=== PATIENT | male | born 1985 | race Hispanic/Latino ===

== ENCOUNTER 2017-11-10 21:03 | Inpatient (IN) | payer MEDICAID, OTHER ==
[2017-11-10 22:43] LABS: RBC URINE 10 /hpf (0-3); URINE BACTERIA RARE (<OCC); URINE BILIRUBIN NEGATIVE (NEGATIVE); URINE BLOOD 1+ (NEGATIVE); URINE CALCIUM OXALATE CRYSTALS FEW /hpf (<OCC); URINE COLOR Yellow (YELLOW); URINE GLUCOSE (UA) NORMAL (Normal); URINE KETONE NEGATIVE (NEGATIVE); URINE LEUKOCYTE ESTERASE NEG Leu/uL (Negative); URINE PROTEIN NEGATIVE (NEGATIVE); URINE UROBILINOGEN NORMAL mg/dL (0.2-1.0); WBC URINE 1 /hpf (0-5)
[2017-11-10 22:47] LABS: BASO # 0.1 K/uL (0.0-0.2); BASO % 0.6 % (0.0-2.0); EOS # 0.1 K/uL (0.0-0.7); EOS % 1.2 % (0.0-4.0); HEMATOCRIT 37.7 % (35.0-51.0); LYMPH # 2.5 K/uL (1.0-4.3); LYMPH % 27.8 % (20.0-40.0); MEAN CORPUSCULAR HEMOGLOBIN 30.2 pg (27.0-31.0); MEAN CORPUSCULAR HGB CONC 34.9 g/dL (33.0-37.0); MEAN PLATELET VOLUME 7.3 fL (7.2-11.7); MONO % 10.8 % (0.0-10.0); RED CELL DISTRIBUTION WIDTH 13.9 % (11.5-14.5); WHITE BLOOD COUNT 8.9 K/uL (4.8-10.8)
[2017-11-10 22:48] LABS: MEAN CELL VOLUME 86.6 fL (80.0-94.0)
[2017-11-10 22:55] LABS: ALB/GLOB RATIO 1.4 (1.0-2.1); ALCOHOL SERUM < 10 mg/dl (0-10); ALKALINE PHOSPHATASE 86 U/L (38-126); ALT/SGPT 35 U/L (21-72); AST/SGOT 31 U/L (17-59); BILIRUBIN,TOTAL 0.6 mg/dL (0.2-1.3); BLOOD UREA NITROGEN 13 mg/dL (9-20); CALCIUM 8.6 mg/dl (8.6-10.4); CARBON DIOXIDE 30 mmol/L (22-30); CHLORIDE 98 mmol/L (98-107); GFR AFRICAN-AMERICAN > 60; GLUCOSE,RANDOM 84 mg/dL (75-110); POTASSIUM 3.9 mmol/L (3.6-5.2); SODIUM 135 mmol/L (132-148); TOTAL PROTEIN 7.2 g/dL (6.3-8.3)
--- NOTE | 2017-11-10 23:44 | C.PDOC ---
Time Seen by Provider: 11/10/17 21:50 Chief Complaint (Nursing): Substance Abuse History Per: Patient Onset/Duration Of Symptoms: Days Current Symptoms Are (Timing): Still Present Suicide/Self Injury Attempted (Context): None Modifying Factor(s): Narcotics, Crack Severity: Moderate Associated Symptoms: denies: Suicidal Thoughts, Suicidal Plan Additional History Per: Prior Records Past Medical History Reviewed: Historical Data, Nursing Documentation, Vital Signs Vital Signs: Last Vital Signs Temp 97.9 F 11/10/17 21:43 Pulse 87 11/10/17 21:43 Resp 18 11/10/17 21:43 BP 133/70 11/10/17 21:43 Pulse Ox 95 11/10/17 23:44 - Medical History PMH: No Chronic Diseases - [facility] Procedures COMBINED ALCOHOL AND DRUG DETOXIFICATION (12/02/14) DETOXIFICATION SERVICES FOR SUBSTANCE ABUSE TREATMENT (05/20/16) DRUG DETOXIFICATION (06/13/15) INDIV UTILITY MANAGER FOR SUBSTANCE ABUSE TREATMENT, INTERPERSONAL (09/25/15) PHARMACOTHERAPY FOR SUBSTANCE ABUSE, OTH REPLACE MED (09/25/15) Family History: States: Unknown Family Hx - Social History Hx Tobacco Use: Yes Hx Alcohol Use: No Hx Substance Use: Yes (IVDU Heroin) - Immunization History Hx Tetanus Toxoid Vaccination: No Hx Influenza Vaccination: No Hx Pneumococcal Vaccination: No Review Of Systems Except As Marked, All Systems Reviewed And Found Negative. Constitutional: Negative for: Fever, Weakness Cardiovascular: Negative for: Chest Pain Respiratory: Negative for: Shortness of Breath Gastrointestinal: Negative for: Vomiting, Abdominal Pain Musculoskeletal: Negative for: Neck Pain Skin: Negative for: Rash Neurological: Negative for: Seizures Physical Exam - Physical Exam Appears: Non-toxic, No Acute Distress Skin: Normal Color, Warm, Dry Head: Atraumatic, Normacephalic Eye(s): bilateral: PERRL, EOMI Neck: Normal ROM, Supple Cardiovascular: Rhythm Regular Respiratory: Normal Breath Sounds, No Accessory Muscle Use Gastrointestinal/Abdominal: Soft, No Tenderness Extremity: Normal ROM, Other (Track doty on arms) Neurological/Psych: Oriented x3, Normal Motor, Normal Sensation ED Course And Treatment - Laboratory Results Result Diagrams: 11/10/17 22:34 11/10/17 22:34 Lab Interpretation: No Acute Changes O2 Sat by Pulse Oximetry: 95 Pulse Ox Interpretation: Normal Progress Note: Pt is medically stable for detox admission. Disposition Counseled Patient/Family Regarding: Studies Performed, Diagnosis, Smoking Cessation - Disposition Disposition: HOSPITALIZED Disposition Time: 23:48 Condition: STABLE - Clinical Impression Clinical Impression: Opioid use disorder, severe, dependence, Cocaine abuse Decision To Admit - Pt Status Changed To: Hospital Disposition Of: Inpatient - Admit Certification Admit to Inpatient:: After my assessment, the patient will require hospitalization for at least two midnights. This is because of the severity of symptoms shown, intensity of services needed, and/or the medical risk in this patient being treated as an outpatient. - InPatient: Physician Admission Certification: I certify that this patient requires 2 or more midnights of care for the following reason:: Detox. - . Bed Request Type: Detox Admitting Physician: Rolo Pastrana Patient Diagnosis: Opioid use disorder, severe, dependence, Cocaine abuse
--- NOTE | 2017-11-11 05:39 | PCM.BM ---
<Shree Conner - Last Filed: 11/11/17 05:38> Treatment Plan Problems - Problems identified on initial assessmt Opiates Abuse Date Initiated: 11/11/17 Time Initiated: 01:30 Assessment reference: NA Status: Active Treatment assets and liabiliti Patient Assests: self-reliant, ADL independent, physically healthy, good support system, negotiates basic needs Patient Liabilities: substance abuse (Opiates, Crack cocaine. ) - Milieu Protocol Maintain good personal hygiene: daily Encourage regular showers, daily Remind patient to perform daily oral care, every shift Assist patient to perform ADL's Maintain personal safety: every shift Educate patient to report safety concerns to staff, every shift Monitor environment for contraband/sharps Medication safety: Monitor for expected outcome, potential side effects: every shift, Assess barriers to learning: every shift, Assess readiness for medication education: daily, every shift <Landy Poole - Last Filed: 11/12/17 08:18> Family Contact Family involvement: Family/SO is involved Family contact: Patient agrees to contact - Goals for Treatment Patient goals for treatment: Complete detox and apply for [facility] rehab at [facility]. Discharge/Continuing Care - Education Needs Education Needs: Patient Medication, Patient Diagnosis/Disease Process, Patient Coping Skills, Patient Anger Management skills, Patient Placement options, Patient Community resources, Patient Other (co-dependency) - Discharge Discharge Criteria: No longer exhibiting s/s of withdrawal, Reduction of target symptoms Discharge to:: Substance Abuse Rehab - Treatment Team Participation Patient/Family/SO Statement: 11/12/17 08:19 "I need [facility] rehab". Discussed with Family/SO: No Was Patient/Family/SO present at Treatment Team Meeting: Yes <Rolo Pastrana - Last Filed: 11/12/17 22:48> - Diagnosis (1) Opioid use disorder, severe, dependence Status: Acute Interventions: 11/12/17 22:48 * Assess 7x/week regarding severity of withdrawal * Educate regarding risks, benefits, side effects and alternatives of medications * Use Motivational Interviewing for abstinence * Use CBT for relapse prevention * Medication management for withdrawal symptoms * Encourage medication assisted treatment *
[2017-11-11] MEDS ORDERED: Buprenorphine Hydrochloride 2 mg SL ONE ×2 (13:32→14:45)
--- NOTE | 2017-11-11 13:54 | PCM.PSYCH ---
Initial Psychiatric Evaluation - Initial Psychiatric Evaluation Type of Admission: Voluntary Legal Status: Capacity Chief Complaint (in patient's own words): "Relapsed" History of Present Illness and Precipitating Events: The patient is seen, chart reviewed and case discussed. He is well-known to the global technical writer from his previous admissions. This is a 32-year-old male, single with no child, unemployed, living with his parents and siblings in [facility]. The patient admits to using 20-25 bags of heroin intravenously every day for several years but he started with painkillers in the past. He describes mild withdrawal symptoms now. He says he stayed clean a little and then relapsed. He also admits to using cocaine "once a week" intranasally. He denies all other drug use and alcohol use but admits to smoking 2 packs per day cigarettes. Past psych history: He denies Family psych history: Denies Medical history: Denies Current Medications: Active Medications Generic Name Dose Route Start Last Admin Trade Name Freq PRN Reason Stop Dose Admin Buprenorphine HCl 6 mg 11/11/17 14:45 Subutex SL 11/11/17 14:46 ONCE ONE Clonidine HCl 0.1 mg 11/11/17 06:59 Catapres PO Q8 PRN COWS Score More or Equal to 5 Hydroxyzine HCl 50 mg 11/11/17 06:59 Atarax PO Q6H PRN Anxiety Ibuprofen 600 mg 11/11/17 06:59 Motrin Tab PO Q6H PRN Pain, moderate (4-7) Loperamide HCl 2 mg 11/11/17 06:59 Imodium PO Q8 PRN Diarrhea Nicotine 1 patch 11/11/17 10:30 11/11/17 11:13 Nicoderm Cq TD 1 patch DAILY JOHN PAUL Administration Ondansetron HCl 4 mg 11/11/17 06:59 Zofran Tab PO Q8 PRN Nausea/Vomiting Quetiapine Fumarate 100 mg 11/11/17 22:00 Seroquel PO HS JOHN PAUL Past Psychiatric History - Past Psychiatric History Previous Treatment History: None Pertinent Medical Hx (Current Medical&Sleep Prob, Allergies): Allergies Allergy/AdvReac Type Severity Reaction Status Date / Time FISH Allergy Intermediate Unknown Verified 05/20/16 15:05 PORK Allergy Intermediate Unknown Verified 05/20/16 15:05 shellfish derived Allergy RASH Verified 11/10/17 21:46 No Known Home Med 11/10/17 Review of Systems - Neurological Neurological: UNREMARKABLE - Psychiatric Psychiatric: Abnormal Sleep Pattern, Anxiety. absent: Depression, Hallucinations, Homicidal Ideation, Suicidal Ideation Mental Status Examination - Personal Presentation Personal Presentation: Looks stated age - Affect Affect: Constricted - Motor Activity Motor Activity: Calm - Reliability in Providing Information Reliability in Providing Information: Good - Speech Speech: Organized - Mood Mood: Anxious - Formal Thought Process Formal Thought Process: No Impairment - Cognitive Functions Orientation: Person, Place, Situation, Time Sensorium: Alert Attention/Concentration: Attentive Estimate of Intelligence: Average Judgement: Intact, as evidence by: Insight regarding need for hospitalization Memory: Recent intact, as evidence by: Ability to recall events of the day, Remote intact, as evidenced by: Abilit to recall sig. life events - Risk Risk: Withdrawal, Diminished functioning - Strength & Assets Inventory Strength & Assets Inventory: Family support, Cooperative - Limitations Limitations: Other DSM 5 DX - DSM 5 DSM 5 Diagnosis: Primary: Opioid withdrawal Opioid use d/o - severe Cocaine use d/o - severe - Recommended/Plan of Treatment Treatment Recommendations and Plan of Treatment: Subutex detox Gabapentin for augmentation As needed medications Attend groups and activities Supportive therapy and psychoeducation SD for abstinence CBT for relapse prevention Encourage MAT Refer to rehab or IOP, and self-help groups Smoking cessation with SD Nicotine patch 34 min Projected ELOS: 5 days Prognosis: Good with treatment Discharge Plan and Discharge Criteria: No wdw sxs refer to rehab or MAT - Smoking Cessation Smoking Cessation Initiated: Yes
[2017-11-12] MEDS: Buprenorphine Hydrochloride 2 mg SL SCH (10:17)
--- NOTE | 2017-11-12 14:16 | PCM.PYCHPN ---
Psychiatric Progress Note - Psychiatric Progress Note Patient seen today, length of contact: 16 min Patient Chief Complaint: "So so" Problems Identified/Issues Discussed: The pt is seen, chart reviewed, case discussed with staff. The pt is compliant with medications and reports no side-effects. Symptoms are improving but needs more time to stabilize. After care discussed, support and psychoeducation given. He is more motivated for rehab now Medication Change: Yes (detox changes daily) Medical Record Reviewed: Yes Mental Status Examination - Cognitive Function Orientation: Person, Place, Situation, Time Memory: Intact Attention: WNL Concentration: WNL Association: WNL Fund of Knowledge: WNL - Mood Mood: Anxious - Affect Affect: Constricted - Formal Thought Process Formal Thought Process: No Impairment - Suicidal Ideation Suicidal Ideation: No - Homicidal Ideation Homicidal Ideation: No Goal/Treatment Plan - Goal/Treatment Plan Need for Continued Stay: Discharge may exacerbated symptoms, Severe functional impairment Progress Toward Problem(s) and Goals/Treatment Plan: Subutex detox Gabapentin for augmentation As needed medications Attend groups and activities Supportive therapy and psychoeducation AR for abstinence CBT for relapse prevention Encourage MAT Refer to rehab or IOP, and self-help groups Smoking cessation with AR Nicotine patch
[2017-11-12] MEDS: Multiple Vitamins Tab PO SCH (14:49)
[2017-11-13] MEDS: Multiple Vitamins Tab PO SCH (10:27)
[2017-11-13] MEDS: Buprenorphine Hydrochloride 2 mg SL SCH (10:27)
[2017-11-14] MEDS: Multiple Vitamins Tab PO SCH (10:15)
[2017-11-14] MEDS: Buprenorphine Hydrochloride 2 mg SL SCH (10:15)
--- NOTE | 2017-11-14 12:30 | PCM.PYCHPN ---
Psychiatric Progress Note - Psychiatric Progress Note Patient seen today, length of contact: 16 min Patient Chief Complaint: "I have muscle cramps and I'm anxious" Problems Identified/Issues Discussed: The pt is seen, chart reviewed, case discussed with staff. Pt stated that he is feeling anxious, as well as he has had muscle cramps, flashes, and difficulty in sleep. The pt is compliant with medications and reports no side-effects. Symptoms are improving but needs more time to stabilize. After care discussed, support and psychoeducation given. DSM 5 Symptoms Update: Opioid dependence, severe, withdrawal symptoms Medication Change: Yes (detox changes daily) Medical Record Reviewed: Yes Mental Status Examination - Cognitive Function Orientation: Person, Place, Situation, Time Memory: Intact Attention: WNL Concentration: WNL Association: WNL Fund of Knowledge: WNL Decription of patient's judgement and insights: good/good - Mood Mood: Anxious - Affect Affect: Constricted - Formal Thought Process Formal Thought Process: No Impairment Psychotic Thoughts and Behaviors: denied Additional comments: Calm and cooperative - Suicidal Ideation Suicidal Ideation: No - Homicidal Ideation Homicidal Ideation: No Goal/Treatment Plan - Goal/Treatment Plan Need for Continued Stay: Discharge may exacerbated symptoms, Severe functional impairment Progress Toward Problem(s) and Goals/Treatment Plan: Subutex detox increase Gabapentin 400 mg po tid for augmentation and anxiety As needed medications Attend groups and activities Supportive therapy and psychoeducation NC for abstinence CBT for relapse prevention Encourage MAT Refer to rehab or IOP, and self-help groups Smoking cessation with NC Nicotine patch Estimated Date of D/C: 11/17/17 - Smoking Cessation Smoking Cessation Initiated: Yes
[2017-11-15] MEDS: Buprenorphine Hydrochloride 2 mg SL SCH (09:19)
[2017-11-15] MEDS: Multiple Vitamins Tab PO SCH (09:20)
--- NOTE | 2017-11-15 12:28 | PCM.PYCHPN ---
Psychiatric Progress Note - Psychiatric Progress Note Patient seen today, length of contact: 16 min Patient Chief Complaint: "Better, I guess" Problems Identified/Issues Discussed: The pt is seen, chart reviewed, case discussed with staff. Support given, CBT and SC used briefly No new symptoms reported, improving slowly and needs more time No SEs from medications, risks discussed. After care discussed, to go to [facility] on Tue Will d/c tomorrow though to lower risk of release and will given an extra dose of sub. Medication Change: Yes (detox changes daily) Medical Record Reviewed: Yes Mental Status Examination - Cognitive Function Orientation: Person, Place, Situation, Time Memory: Intact Attention: WNL Concentration: WNL Association: WNL Fund of Knowledge: WNL - Mood Mood: Anxious - Affect Affect: Constricted - Formal Thought Process Formal Thought Process: No Impairment - Suicidal Ideation Suicidal Ideation: No - Homicidal Ideation Homicidal Ideation: No Goal/Treatment Plan - Goal/Treatment Plan Need for Continued Stay: Discharge may exacerbated symptoms, Severe functional impairment Progress Toward Problem(s) and Goals/Treatment Plan: Subutex detox Gabapentin for augmentation As needed medications Attend groups and activities Supportive therapy and psychoeducation SC for abstinence CBT for relapse prevention Encourage MAT Refer to rehab or IOP, and self-help groups Smoking cessation with SC Nicotine patch Estimated Date of D/C: 11/17/17
[2017-11-15 13:12] VITALS: RESP 18
[2017-11-16 06:37] VITALS: TEMP 97.8; O2SAT 99
[2017-11-16 08:09] VITALS: BP 124/86; PULSE 81
[2017-11-16] MEDS ORDERED: Buprenorphine Hydrochloride 2 mg SL ONE (09:00)
--- NOTE | 2017-11-16 09:12 | PCM.PYCHDC ---
Mental Status Examination - Mental Status Examination Orientation: Person, Place, Situation, Time Memory: Intact Mood: Neutral Affect: Broad Attention: WNL Concentration: WNL Association: WNL Fund of Knowledge: WNL Formal Thought Process: No Impairment Description of patient's judgement and insight: good/good Psychotic Thoughts and Behaviors: denied, Calm anc Cooperative, Motivated to start new life without drugs Suicidal Ideation: No Current Homicidal Ideation?: No Plan: denied Discharge Summary - Discharge Note Reason for Hospitalization: This is a 32-year-old male, single with no child, unemployed, living with his parents and siblings in [facility]. The patient admits to using 20-25 bags of heroin intravenously every day for several years but he started with painkillers in the past. He describes mild withdrawal symptoms now. He says he stayed clean a little and then relapsed. He also admits to using cocaine "once a week" intranasally. He denies all other drug use and alcohol use but admits to smoking 2 packs per day cigarettes. Past psych history: He denies Family psych history: Denies Medical history: Denies Consultations:: List each consultation separately and include: 1. Reason for request. 2. Findings. 3. Follow-up Summary of Hospital Course include:: 1. Description of specific treatment plan utilized for patients during their course of treatmen. 2. Summarize the time- course for resolution of acute symptoms and/or regressed behaviors. 3. Describe issues identified and worked on during hospitalization. 4. Describe medication utilized. 5. Describe medical problems identified and treated. 6. Reassessment of suicide risk Summary of Hospital Course: The pt was admitted and started on treatment with psychotherapy, support, psychoeducation and medications.The pt was compliant with the treatment plan. He is motivated to stop heroin. He stated that he will attend NA meeting and will stay away from drugs. He is accepted to [facility] and he will start it from tomorrow. DC and CBT used. The pt attended groups and activities, as well as milieu therapy. All the risks and benefits of medications are discussed and the patient understood and agreed. The pt improved with the treatments provided.He denied depressive, anxiety and perceptual disturbances. He denied SI,HI, intent or plan. After care discussed with the patient. Time spend 28 minutes. - Diagnosis (1) Opiate dependence Status: Resolved (2) Opioid use disorder, severe, dependence Status: Resolved (3) Cocaine abuse Status: Resolved - Final Diagnosis (DSM 5) Condition upon Discharge: STABLE DSM 5: Opioid dependence, severe, withdrawal symptoms Cocaine use d/o, severe, dependence Disposition: HOME/ ROUTINE Follow-up Treatment Plan: Continue below medications after discharge. Follow after care plan as discussed. Use relapse prevention copying skills Return to ER or call 911 if suicidal, homicidal or symptoms relapse. Stay away from stress, alcohol and drugs. See primary doctor once a year. Time spend 28 minutes Prescriptions/Medication Reconciliation: Gabapentin [Neurontin] 400 mg PO TID #90 cap Multivitamins [Hexavitamin] 1 tab PO DAILY #30 tab QUEtiapine [Seroquel] 100 mg PO HS #30 tab - Smoking Cessation Smoking Cessation Medication prescribed: Yes - Antipsychotic Medications Pt discharged on 2 or more routine antipsychotic medications: No
== END 2017-11-16 09:55 | disposition home or self-care (01) | DRG 745 ==
LOC: C.ER 21:03 → C.7D 23:49
PROVIDERS: ADMIT Psychiatry & Neurology Psychiatry; ATTEND Psychiatry & Neurology Psychiatry
PROC: HZ52ZZZ Individual Psychotherapy for Substance Abuse Treatment, Cognitive-Behavioral (ICD-10-PCS; principal; 2017-11-10)
PROC: HZ2ZZZZ Detoxification Services for Substance Abuse Treatment (ICD-10-PCS; 2017-11-10)
PROC: HZ59ZZZ Individual Psychotherapy for Substance Abuse Treatment, Supportive (ICD-10-PCS; 2017-11-10)
PROC: HZ56ZZZ Individual Psychotherapy for Substance Abuse Treatment, Psychoeducation (ICD-10-PCS; 2017-11-10)
DX: F11.23 Opioid dependence with withdrawal (principal); F14.20 Cocaine dependence, uncomplicated; F17.210 Nicotine dependence, cigarettes, uncomplicated; F41.9 Anxiety disorder, unspecified; Z79.899 Other long term (current) drug therapy